=== PATIENT | female | born 1990 | race American Indian/Alaskan Native ===

== ENCOUNTER 2017-04-29 04:30 | Outpatient (CLI) | payer MEDICAID ==
[2017-04-29] MEDS ORDERED: LACTATED RINGERS 500 ML IV ONE (04:37)
[2017-04-29 04:56] VITALS: BP 110/58
[2017-04-29 05:39] LABS: Amorphous Crystals,Urine 2+; Bacteria,Urine 1+ /HPF (Negative); Bilirubin,Urine NEG (Negative); Blood,Urine NEG (Negative); Color,Urine Yellow (Yellow); Protein,Urine <15 mg/dL mg/dL (Negative); Urobilinogen,Urine < 2.0 mg/dL (<2.0)
== END 2017-04-29 06:05 | disposition home or self-care (01) ==
LOC: TRG 04:30
PROVIDERS: ATTEND Obstetrics & Gynecology
DX: O47.03 False labor before 37 completed weeks of gestation, third trimester (principal); Z3A.34 34 weeks gestation of pregnancy
CPT/HCPCS: 59025; 81001; J7120

== ENCOUNTER 2017-05-02 12:21 | Outpatient (CLI) | payer MEDICAID ==
[2017-05-02] MEDS ORDERED: LACTATED RINGERS 500 ML IV ONE (12:31)
[2017-05-02] MEDS: NORMOSOL-R PH 7.4 1,000 ML IV SCH ×2 (15:00→16:14)
[2017-05-02 15:50] LABS: BUN/Creatinine Ratio 15; Blood Urea Nitrogen 6 mg/dL (7-17); Calcium 8.5 mg/dL (8.4-10.2); Hemolysis Index 17
[2017-05-02 15:59] LABS: Bilirubin,Urine NEG (Negative); Blood,Urine NEG (Negative); Color,Urine Yellow (Yellow); Mucus,Urine FEW /HPF; Protein,Urine <15 mg/dL mg/dL (Negative)
[2017-05-02 16:08] VITALS: BP 112/57
== END 2017-05-02 17:20 | disposition home or self-care (01) ==
LOC: TRG 12:21 → APU 12:26 → LD 13:15 → TRG 17:20
PROVIDERS: ATTEND Obstetrics & Gynecology
DX: O62.9 Abnormality of forces of labor, unspecified (principal); Z3A.34 34 weeks gestation of pregnancy
CPT/HCPCS: 36415; 59025; 80048; 81001; 96360; 96361

== ENCOUNTER 2017-05-30 11:21 | Outpatient (CLI) | payer MEDICAID ==
[2017-05-30] MEDS: LACTATED RINGERS 1,000 ML IV SCH ×2 (13:22→18:46)
[2017-05-30] MEDS ORDERED: LACTATED RINGERS 1,000 ML IV SCH (16:00)
[2017-05-30] MEDS ORDERED: AMBIEN PO PRN (16:35)
[2017-05-30 22:28] VITALS: BP 100/54
== END 2017-05-31 01:19 | disposition home or self-care (01) ==
LOC: TRG 11:21 → LD 16:46 → TRG 05-31 01:19
PROVIDERS: ATTEND Obstetrics & Gynecology
DX: O47.1 False labor at or after 37 completed weeks of gestation (principal); Z3A.38 38 weeks gestation of pregnancy
CPT/HCPCS: 59025; 96360; 96361; J7120

== ENCOUNTER 2017-06-03 12:33 | Outpatient (CLI) | payer MEDICAID ==
[2017-06-03 14:24] LABS: Bacteria,Urine 1+ /HPF (Negative); Bilirubin,Urine NEG (Negative); Blood,Urine NEG (Negative); Color,Urine Yellow (Yellow); Mucus,Urine FEW /HPF; Protein,Urine <15 mg/dL mg/dL (Negative); Urobilinogen,Urine < 2.0 mg/dL (<2.0)
[2017-06-03] MEDS ORDERED: LACTATED RINGERS 1,000 ML IV ONE (15:40)
[2017-06-03] MEDS ORDERED: ROCEPHIN/NS 1 GM/50 ML 1 GM/50 ML BAG IV ONE (15:40)
[2017-06-03] MEDS ORDERED: TYLENOL PO ONE (15:41)
[2017-06-03] MEDS ORDERED: cefTRIAXone 1 GM in NACL 0.9% 20 ML IV ONE (16:00)
[2017-06-03 16:49] LABS: Basophils % (Auto) 0.7 % (0.0-1.8); Eosinophils # (Auto) 0.1 K/mm3 (0.0-0.4); Eosinophils % (Auto) 1.5 % (0.0-4.3); Hematocrit 31.2 % (30.3-42.9); Hemoglobin 10.3 gm/dl (10.1-14.3); Lymphocytes # (Auto) 0.9 K/mm3 (1.2-5.4); Lymphocytes % (Auto) 13.2 % (13.4-35.0); Mean Corpuscular HGB Conc 33 % (30-34); Mean Corpuscular Hemoglobin 30 pg (28-32); Mean Corpuscular Volume 90 fl (79-97); Monocytes # (Auto) 0.6 K/mm3 (0.0-0.8); Monocytes % (Auto) 8.1 % (0.0-7.3); Platelet Count 143 K/mm3 (140-440); Red Blood Count 3.45 M/mm3 (3.65-5.03); Red Cell Distribution Width 14.4 % (13.2-15.2)
[2017-06-03 17:12] LABS: Alanine Aminotransferase 12 units/L (7-56); Albumin 2.9 g/dL (3.9-5); BUN/Creatinine Ratio 28; Blood Urea Nitrogen 11 mg/dL (7-17); Calcium 8.5 mg/dL (8.4-10.2); Hemolysis Index 17
[2017-06-03 19:40] VITALS: BP 117/57
== END 2017-06-03 17:39 | disposition home or self-care (01) ==
LOC: TRG 12:33
PROVIDERS: ATTEND Obstetrics & Gynecology
DX: O47.1 False labor at or after 37 completed weeks of gestation (principal); Z3A.38 38 weeks gestation of pregnancy
CPT/HCPCS: 36415; 59025; 80053; 81001; 85025; 96360; 96361; 96365; J0696; J7120; 96372